=== PATIENT | female | born 1970 | race African-American/Black ===

== ENCOUNTER 2020-11-05 14:49 | Emergency (ER) | payer OTHER ==
[~2020-11-05] VITALS: Ht 157.5 cm; Wt 83.0 kg
[~2020-11-05 14:49] MED LIST: NAPROXEN
[2020-11-05] MEDS ORDERED: IBUPROFEN 600 MG TAB PO STA (15:07)
[2020-11-05] MEDS ORDERED: HYDROCODONE/APAP 10MG-325MG TAB PO ONE (15:15)
[2020-11-05] MEDS ORDERED: ULTRAM50 MG PO (16:50)
[2020-11-05 17:39] VITALS: BP 126/75
== END 2020-11-05 17:40 | disposition home or self-care (01) ==
LOC: ER 16:22
DX: S93.402A Sprain of unspecified ligament of left ankle, initial encounter (principal); W01.0XXA Fall on same level from slipping, tripping and stumbling without subsequent striking against object, initial encounter; Y93.01 Activity, walking, marching and hiking; Y99.0 Civilian activity done for income or pay; E78.5 Hyperlipidemia, unspecified; E78.00 Pure hypercholesterolemia, unspecified
CPT/HCPCS: 99283

== ENCOUNTER → 2020-12-21 | Outpatient (CLI) | payer BC, OTHER ==
[~2020-12-21] MED LIST changes: +COVID-19 VACC, MRNA(MODERNA)/PF 100 MCG/0.5 ML VIAL IM ONE; +ULTRAM50 MG PO
== END | disposition home or self-care (01) ==
LOC: VACCPMC 16:59
DX: Z23 Encounter for immunization (principal); Z20.822 Contact with and (suspected) exposure to COVID-19
CPT/HCPCS: 91301